=== PATIENT | female | born 1940 | race Caucasian/White ===

== ENCOUNTER 2017-01-31 05:37 | Day surgery (SDC) | payer OTHER, MEDICARE ==
[~2017-01-31] VITALS: Ht 152.4 cm; Wt 74.8 kg
--- NOTE | ~2017-01-31 | O ---
[facility] [place] [address] OPERATIVE REPORT Name: MICHEAL BRADLEY Room #: 150-4 [facility]#: [id number] Admission: 01/31/17 Attend Phys: Barrett Liriano MD Discharge: Date of : 36 Report #: [id number] THIS REPORT FOR: //name// CC: FAM unknown Lul Liriano DATE OF SERVICE: 01/31/2017 SURGEON: Barrett Liriano MD PREOPERATIVE DIAGNOSIS: Bilateral nasal lacrimal duct obstruction. POSTOPERATIVE DIAGNOSIS: Bilateral nasal lacrimal duct obstruction. OPERATION PERFORMED: Bilateral endoscopic balloon dacryocystoplasty with silicone intubation. ANESTHESIA: General. COMPLICATIONS: None. INDICATIONS FOR SURGERY: This patient has acquired bilateral nasal lacrimal duct stenosis with chronic tearing and discharge, both eyes. The current procedures are undertaken in order to improve the patient's level of lacrimal outflow and visual clarity. Informed consent was obtained to include but not limited to the potential risks for damage to the eye, loss of vision, bleeding, infection, failure to improve the problem and need for further surgery. DESCRIPTION OF OPERATION: The patient was taken to the operating room, where general anesthesia was administered. The medial canthi were anesthetized with 2% Xylocaine with epinephrine mixed with equal parts of 0.75% Marcaine with Wydase. The lateral gill of the nose were then bilaterally injected with the same anesthetic mixture. The nose was packed with Afrin-soaked cottonoids. The patient was then prepped and draped in the usual sterile fashion. A moist compress was placed on the left eye while attention was turned to the right side. The superior and inferior puncta were then atraumatically dilated with a punctum dilator. A size 0 lacrimal probe was then passed through the superior canalicular system and through the stenosed nasal lacrimal duct. The nasal packing was removed and the endoscope was brought into the field. The inferior turbinate was gently infractured with a Madison periosteal elevator to allow visualization of the inferior meatus in the area of the opening of the valve of [facility] [address] [place] [address] OPERATIVE REPORT Name: DONNA BRADLEYVioleta Andujar Room #: [address] [place] [address]#: [id number] Admission: 01/31/17 Attend Phys: Barrett Liriano MD Discharge: Date of : 36 Report #: [id number] Hasner in the nose. The probe was found and confirmed to be in the proper location. It was removed and subsequently replaced with a size 1 and a size 2 York probe, which also had their passage confirmed endoscopically to be in the proper location. A 3 by 15 LacriCatheter was lubricated with a small quantity of ophthalmic antibiotic ointment. The LacriCatheter was then passed through the superior canalicular system and the stenosed nasal lacrimal duct. The LacriCatheter was confirmed to be in the proper location endoscopically intranasally in the inferior meatus. The LacriCatheter was inflated to 9 atmospheres for 90 seconds and deflated. The catheter was then inflated to 9 atmospheres for 60 seconds. The catheter was then withdrawn to the proximal black ring. It was then inflated to 9 atmospheres for 90 seconds. The balloon was then deflated and reinflated to 9 atmospheres for 60 seconds. The balloon was the aspirated and withdrawn to the distal black ring. It was then inflated to 9 atmospheres for 90 seconds. The balloon was deflated and reinflated to 9 atmospheres for 60 seconds. The balloon was then deflated and vigorously aspirated as it was withdrawn through the superior canalicular system. A Lawson tube was then passed through the superior canalicular system and out the dilated duct. The Lawson tube was secured under the inferior turbinate in the inferior meatus with a Lawson hook and retrieved endoscopically. The Lawson tube was then passed through the inferior canalicular system in a similar fashion and was retrieved endoscopically in the nose atraumatically. The Lawson tube was then secured to itself with 3 square throws and then to the lateral wall of the nose with a 5-0 Prolene suture. Attention was then turned to the other side, where the same procedure was performed. Antibiotic steroid drops were then placed in both eyes. A small quantity of ophthalmic antibiotic ointment was placed on the Lawson tube. The patient was then transported to the recovery area with no anesthetic or operative complications being noted. By: [id number] Barrett Liriano MD /nt
[~2017-01-31 05:37] MED LIST: AMARYL2 MG PO; AMITRIPTYLINE H25 M2 PO; ASPIR 8181 MG PO; ATENOLOL 25 MG25 M1 PO; CAPOTEN 50MG TA50 MG PO; CYMBALTA30 MG PO; DICLOFENAC SOD100 MG PO; GLUCOTROL5 MG PO; HYDROCHLOROTHIA25 M2 PO; IMITREX 25 MG T25 MG PO; LEVOTHYROXIN0.088 MG PO; METFORMIN HCL500 MG PO; MULTIVITAMINS PO; NIACIN 500 MG500 M1 PO; ODORLESS GARL1250 MG PO; TUMS PO; VITAMIN D-32000 UNIT PO; VITAMIN E400 UNIT PO; VITAMINC500 PO
[2017-01-31 10:46] LABS: CALCIUM 7.7 mg/dL (8.5-10.1); POTASSIUM 4.3 mmol/L (3.5-5.1)
[2017-01-31 10:50] VITALS: BP 111/67
== END 2017-01-31 14:00 | disposition home or self-care (01) ==
LOC: OR 05:37 → TBA 05:38 → OR 13:34
PROVIDERS: Ophthalmology
DX: H04.553 Acquired stenosis of bilateral nasolacrimal duct (principal); I10 Essential (primary) hypertension; G47.33 Obstructive sleep apnea (adult) (pediatric); Z85.850 Personal history of malignant neoplasm of thyroid; Z85.828 Personal history of other malignant neoplasm of skin; E11.9 Type 2 diabetes mellitus without complications; G43.909 Migraine, unspecified, not intractable, without status migrainosus; Z90.710 Acquired absence of both cervix and uterus; Z90.49 Acquired absence of other specified parts of digestive tract; Z96.653 Presence of artificial knee joint, bilateral
CPT/HCPCS: 50010; 50101; 50261; 50386; 50398; 50445; 51777; 56528; 62110; 62900; 64037; 70005